=== PATIENT | female | born 1965 | race Caucasian/White ===

== ENCOUNTER 2021-01-25 10:42 | Day surgery (SDC) | payer MEDICARE, OTHER ==
[2021-01-25] MEDS ORDERED: Depo-Medrol 40 MG/ML IM ONE (10:43)
[2021-01-25] MEDS ORDERED: LIDOCAINE HCL 2% 100 MG/5 ML IJ ONE (10:43)
[2021-01-25] MEDS ORDERED: DIPRIVAN 200 MG/20 ML IV ONE (12:03)
--- NOTE | 2021-01-25 12:43 | XRAY ---
Indication: Bilateral L4-S1 MBB. Intraoperative fluoroscopy provided for 8 seconds. Single digital spot image submitted for interpretation demonstrates posterior needle tips projecting over the expected left and right L4-S1 nerve roots. Correlate with intraoperative findings/report.
--- NOTE | 2021-01-25 13:07 | XRAY ---
8 seconds of fluoroscopy was used in surgery for a bilateral L4-L5 and L5-S1 MBB.
[2021-01-25] MEDS ORDERED: Lactated Ringers 1,000 ML IV ONE (15:56)
== END 2021-01-25 12:27 | disposition home or self-care (01) ==
LOC: SDC-PAIN 10:42
PROVIDERS: ATTEND Psychiatry & Neurology Pain Medicine
DX: M47.816 Spondylosis without myelopathy or radiculopathy, lumbar region (principal); M19.90 Unspecified osteoarthritis, unspecified site; I10 Essential (primary) hypertension; F32.9 Major depressive disorder, single episode, unspecified; F41.9 Anxiety disorder, unspecified; E78.5 Hyperlipidemia, unspecified
CPT/HCPCS: 64493; 64494; 72020; 77002; J1030; J2704

== ENCOUNTER 2021-03-22 13:05 | Day surgery (SDC) | payer MEDICARE, OTHER ==
[2021-03-22] MEDS ORDERED: Depo-Medrol 40 MG/ML IM ONE (13:06)
[2021-03-22] MEDS ORDERED: BUPIVACAINE 0.5% VIAL IJ ONE (13:06)
[2021-03-22] MEDS ORDERED: Lactated Ringers 1,000 ML IV ONE (14:57)
[2021-03-22] MEDS ORDERED: DIPRIVAN 200 MG/20 ML IV ONE (15:23)
--- NOTE | 2021-03-22 16:44 | XRAY ---
Indication: Bilateral L4-S1 MBB. Intraoperative fluoroscopy provided for 6 seconds. Single digital spot image submitted for interpretation demonstrates posterior needle tips projecting over the expected left and right L4-S1 nerve roots. Correlate with intraoperative findings/report. Incidental partially visualized right pain pump.
--- NOTE | 2021-03-22 16:52 | XRAY ---
6 seconds of fluoroscopy was used in surgery for a bilateral L4-L5, L5-S1 MBB.
== END 2021-03-22 15:52 | disposition home or self-care (01) ==
LOC: SDC-PAIN 13:05
PROVIDERS: ATTEND Psychiatry & Neurology Pain Medicine
DX: M47.816 Spondylosis without myelopathy or radiculopathy, lumbar region (principal); Z79.899 Other long term (current) drug therapy
CPT/HCPCS: 64493; 64494; 72020; 77002; J1030; J2704

== ENCOUNTER 2021-04-26 13:10 | Day surgery (SDC) | payer MEDICARE, OTHER ==
[2021-04-26] MEDS ORDERED: Xylocaine 1% Vial 30 ML PF IJ ONE (13:11)
[2021-04-26] MEDS ORDERED: Depo-Medrol 40 MG/ML IM ONE (13:11)
[2021-04-26] MEDS ORDERED: BUPIVACAINE 0.5% VIAL IJ ONE (13:11)
[2021-04-26] MEDS ORDERED: DIPRIVAN 200 MG/20 ML IV ONE (16:25)
[2021-04-26] MEDS ORDERED: Ketamine HCl 50 MG/ML ONE (16:30)
[2021-04-26] MEDS ORDERED: Lactated Ringers 1,000 ML IV ONE (16:40)
[2021-04-26] MEDS ORDERED: MORPHINE SULFATE 2 MG INJ ONE ×2 (16:51→17:03)
[2021-04-26] MEDS ORDERED: TORAdol 30 mg Injection ONE (17:09)
--- NOTE | 2021-04-26 17:09 | XRAY ---
Indication: Left L4-S1 RFA. Intraoperative fluoroscopy provided for 20 seconds. 3 digital spot image submitted for interpretation demonstrates posterior needle tips projecting over the expected left L4-S1 nerve roots. Correlate with intraoperative findings/report.
--- NOTE | 2021-04-26 17:53 | XRAY ---
20 seconds of fluoroscopy was used in surgery for a left L4-S1 RFA.
== END 2021-04-26 18:05 | disposition home or self-care (01) ==
LOC: SDC-PAIN 13:10
PROVIDERS: ATTEND Psychiatry & Neurology Pain Medicine
DX: M47.816 Spondylosis without myelopathy or radiculopathy, lumbar region (principal); Z79.899 Other long term (current) drug therapy
CPT/HCPCS: 64635; 64636; 72100; 77002; J1030; J1885; J2001; J2270; J2704

== ENCOUNTER 2021-05-03 10:33 | Day surgery (SDC) | payer MEDICARE, OTHER ==
[2021-05-03] MEDS ORDERED: Xylocaine 1% Vial 30 ML PF IJ ONE (10:34)
[2021-05-03] MEDS ORDERED: Depo-Medrol 40 MG/ML IM ONE (10:34)
[2021-05-03] MEDS ORDERED: BUPIVACAINE 0.5% VIAL IJ ONE (10:34)
[2021-05-03] MEDS ORDERED: Lactated Ringers 1,000 ML IV ONE (10:43)
[2021-05-03] MEDS ORDERED: DIPRIVAN 200 MG/20 ML IV ONE (10:57)
--- NOTE | 2021-05-03 12:22 | XRAY ---
Indication: Right L4-S1 RFA. Intraoperative fluoroscopy provided for 29 seconds. 3 digital spot image submitted for interpretation demonstrates posterior needle tips projecting over the expected right L4-S1 nerve roots. Correlate with intraoperative findings/report. Incidental incompletely visualized right back epidural stimulator device/leads.
--- NOTE | 2021-05-03 13:49 | XRAY ---
29 seconds of fluoroscopy was used in surgery for a right L4-S1 RFA.
== END 2021-05-03 11:45 | disposition home or self-care (01) ==
LOC: SDC-PAIN 10:33
PROVIDERS: ATTEND Psychiatry & Neurology Pain Medicine
DX: M47.816 Spondylosis without myelopathy or radiculopathy, lumbar region (principal); Z79.899 Other long term (current) drug therapy
CPT/HCPCS: 64635; 64636; 72100; 77002; J1030; J2001; J2704

== ENCOUNTER 2022-04-04 12:43 | Day surgery (SDC) | payer MEDICARE, OTHER ==
[2022-04-04] MEDS ORDERED: Depo-Medrol 40 MG/ML IM ONE (12:44)
[2022-04-04] MEDS ORDERED: Marcaine Mpf 0.5% Vial 30 Ml IJ ONE (12:44)
[2022-04-04] MEDS ORDERED: Decadron 4 MG INJ IJ ONE (12:44)
[2022-04-04] MEDS ORDERED: XYLOCAINE-MPF 1% 5ML SDV IJ ONE (12:44)
[2022-04-04] MEDS ORDERED: DIPRIVAN 200 MG/20 ML IV ONE (14:34)
[2022-04-04] MEDS ORDERED: Lactated Ringers 1,000 ML IV ONE (15:08)
--- NOTE | 2022-04-04 16:31 | XRAY ---
Indication: Left hip and left piriformis injections. Intraoperative fluoroscopy provided for 18 seconds. 2 digital spot image obtained prone submitted for interpretation demonstrates posterior needle tip projecting over the expected left piriformis muscle. Second needle tip lateral to left greater trochanter. Small amount of contrast injected for both needle tip placement. Correlate with intraoperative findings/report.
--- NOTE | 2022-04-04 16:45 | XRAY ---
18 seconds of fluoroscopy was used in surgery for a left hip greater trochanteric bursa injection and a left piriformis injection.
== END 2022-04-04 14:54 | disposition home or self-care (01) ==
LOC: SDC-PAIN 12:43
PROVIDERS: ATTEND Psychiatry & Neurology Pain Medicine
DX: M16.12 Unilateral primary osteoarthritis, left hip (principal); M79.18 Myalgia, other site; Z79.899 Other long term (current) drug therapy
CPT/HCPCS: 20552; 20610; 73501; 77002; J1030; J1100; J2704; Q9966

== ENCOUNTER 2022-08-15 14:26 | Day surgery (SDC) | payer MEDICARE, OTHER ==
[2022-08-15] MEDS ORDERED: BUPIVACAINE 0.5% VIAL IJ ONE (14:27)
[2022-08-15] MEDS ORDERED: Decadron 4 MG INJ IV ONE (14:27)
[2022-08-15] MEDS ORDERED: Depo-Medrol 40 MG/ML IM ONE (14:27)
[2022-08-15] MEDS ORDERED: LIDOCAINE HCL 1% 50 MG/5 ML VL PF IJ ONE (14:27)
[2022-08-15] MEDS ORDERED: DIPRIVAN 200 MG/20 ML IV ONE (17:12)
--- NOTE | 2022-08-15 19:35 | XRAY ---
Indication: Left greater trochanter bursa and left piriformis injections. Intraoperative fluoroscopy provided for 31 second. 2 digital spot image obtained prone submitted for interpretation demonstrates needle tip projecting lateral to left greater trochanter. Second posterior needle tip projects over the left piriformis muscle. Small amount of contrast injected for both needle tip placement. Correlate with intraoperative findings/report.
--- NOTE | 2022-08-16 09:18 | XRAY ---
31 seconds of fluoroscopy was used in surgery for a left greater trochanteric bursa and piriformis muscle injection.
== END 2022-08-15 17:50 | disposition home or self-care (01) ==
LOC: SDC-PAIN 14:26
PROVIDERS: ATTEND Psychiatry & Neurology Pain Medicine
DX: M16.12 Unilateral primary osteoarthritis, left hip (principal); M79.18 Myalgia, other site; Z79.899 Other long term (current) drug therapy
CPT/HCPCS: 20552; 20610; 73502; 77002; J1030; J1100; J2001; J2704; Q9966

== ENCOUNTER 2023-03-20 12:54 | Day surgery (SDC) | payer MEDICARE, OTHER ==
[2023-03-20] MEDS ORDERED: Depo-Medrol 40 MG/ML IM ONE (12:55)
[2023-03-20] MEDS ORDERED: LIDOCAINE HCL 1% 50 MG/5 ML VL PF IJ ONE (12:55)
[2023-03-20] MEDS ORDERED: BUPIVACAINE 0.5% VIAL IJ ONE (12:55)
[2023-03-20] MEDS ORDERED: DIPRIVAN 200 MG/20 ML IV ONE (15:02)
[2023-03-20] MEDS ORDERED: Lactated Ringers 1,000 ML IV ONE (15:28)
--- NOTE | 2023-03-20 16:27 | XRAY ---
Indication: Left L4-S1 RFA. Intraoperative fluoroscopy provided for 22 seconds. 4 digital spot images submitted for interpretation demonstrates posterior needle tips projecting over the expected left L4-S1 nerve roots. Correlate with intraoperative findings/report.
--- NOTE | 2023-03-21 08:47 | XRAY ---
22 seconds of fluoroscopy was used in surgery for a left L4-S1 RFA.
== END 2023-03-20 15:35 | disposition home or self-care (01) ==
LOC: SDC-PAIN 12:54
PROVIDERS: ATTEND Psychiatry & Neurology Pain Medicine
DX: M47.816 Spondylosis without myelopathy or radiculopathy, lumbar region (principal)
CPT/HCPCS: 64635; 64636; 72100; 77002; J1030; J2001; J2704

== ENCOUNTER 2023-03-21 13:03 | Day surgery (SDC) | payer MEDICARE, OTHER ==
[2023-03-21] MEDS ORDERED: BUPIVACAINE 0.5% VIAL IJ ONE (13:04)
[2023-03-21] MEDS ORDERED: Depo-Medrol 40 MG/ML IM ONE (13:04)
[2023-03-21] MEDS ORDERED: LIDOCAINE HCL 1% 50 MG/5 ML VL PF IJ ONE (13:04)
[2023-03-21] MEDS ORDERED: DIPRIVAN 200 MG/20 ML IV ONE (15:00)
[2023-03-21] MEDS ORDERED: Lactated Ringers 1,000 ML IV ONE (15:37)
--- NOTE | 2023-03-21 16:42 | XRAY ---
Indication: Right L4-S1 RFA. Intraoperative fluoroscopy provided for 28 seconds. 4 digital spot image submitted for interpretation demonstrates posterior needle tips projecting over the expected L4-S1 nerve roots. Correlate with intraoperative findings/report. Incidental partially visualized right epidural stimulator device/leads.
--- NOTE | 2023-03-21 17:03 | XRAY ---
28 seconds of fluoroscopy was used in surgery for a right L4-S1 RFA.
== END 2023-03-21 15:35 | disposition home or self-care (01) ==
LOC: SDC-PAIN 13:03
PROVIDERS: ATTEND Psychiatry & Neurology Pain Medicine
DX: M47.816 Spondylosis without myelopathy or radiculopathy, lumbar region (principal); Z79.899 Other long term (current) drug therapy
CPT/HCPCS: 64635; 64636; 72100; 77002; J1030; J2001; J2704

== ENCOUNTER 2023-06-05 10:42 | Day surgery (SDC) | payer MEDICARE, OTHER ==
[2023-06-05] MEDS ORDERED: BUPIVACAINE 0.5% VIAL IJ ONE (10:43)
[2023-06-05] MEDS ORDERED: Depo-Medrol 40 MG/ML IM ONE (10:43)
[2023-06-05] MEDS ORDERED: DIPRIVAN 200 MG/20 ML IV ONE (14:13)
[2023-06-05] MEDS ORDERED: Xylocaine-Mpf 2% 5 Ml Vial ONE (14:15)
--- NOTE | 2023-06-05 15:17 | XRAY ---
Indication: Bilateral SI joint and left greater trochanter bursa injection. Intraoperative fluoroscopy provided for 26 seconds. 5 digital spot image obtained prone submitted for interpretation demonstrates posterior needle tip projecting over for the left and right SI joint. Additional needle tip lateral to left greater trochanter with small amount of contrast injected for needle tip placement. Correlate with intraoperative findings/report. Incidental incompletely visualized right epidural stimulator device/leads.
[2023-06-05] MEDS ORDERED: Lactated Ringers 1,000 ML IV ONE (17:03)
--- NOTE | 2023-06-05 17:04 | XRAY ---
26 seconds of fluoroscopy was used in surgery for a bilateral sacroiliac joint and left greater trochanteric bursa injection.
== END 2023-06-05 14:46 | disposition home or self-care (01) ==
LOC: SDC-PAIN 10:42
PROVIDERS: ATTEND Psychiatry & Neurology Pain Medicine
DX: M46.1 Sacroiliitis, not elsewhere classified (principal); M16.12 Unilateral primary osteoarthritis, left hip; Z79.899 Other long term (current) drug therapy
CPT/HCPCS: 20610; 27096; 73502; 77002; G0260; J1030; J2704; Q9966

== ENCOUNTER 2023-09-04 12:19 | Day surgery (SDC) | payer MEDICARE, OTHER ==
[2023-09-04] MEDS ORDERED: BUPIVACAINE 0.5% VIAL IJ ONE (12:20)
[2023-09-04] MEDS ORDERED: Depo-Medrol 40 MG/ML IM ONE (12:20)
[2023-09-04] MEDS ORDERED: DIPRIVAN 200 MG/20 ML IV ONE (14:59)
[2023-09-04] MEDS ORDERED: Lactated Ringers 1,000 ML IV ONE (15:52)
--- NOTE | 2023-09-04 16:50 | XRAY ---
Indication: Left SI joint and left greater trochanter bursa injection. Intraoperative fluoroscopy provided for 15 seconds. 4 digital spot image obtained prone submitted for interpretation demonstrates posterior needle tip projecting over the left SI joint. Second needle tip lateral to left greater trochanter with small amount of contrast injected for needle tip placement. Correlate with intraoperative findings/report.
--- NOTE | 2023-09-04 16:56 | XRAY ---
15 seconds of fluoroscopy was used in surgery for a left sacroiliac joint and left greater trochanteric bursa injection.
== END 2023-09-04 15:24 | disposition home or self-care (01) ==
LOC: SDC-PAIN 12:19
PROVIDERS: ATTEND Psychiatry & Neurology Pain Medicine
DX: M46.1 Sacroiliitis, not elsewhere classified (principal); M16.12 Unilateral primary osteoarthritis, left hip
CPT/HCPCS: 20610; 27096; 73501; 77002; G0260; J1030; J2704; Q9966

== ENCOUNTER 2024-11-04 13:32 | Day surgery (SDC) | payer MEDICARE, OTHER ==
[2024-11-04] MEDS ORDERED: BUPIVACAINE 0.5% VIAL IJ ONE (13:33)
[2024-11-04] MEDS ORDERED: Depo-Medrol 40 MG/ML IM ONE (13:33)
[2024-11-04] MEDS ORDERED: propofoL IV ONE (15:44)
--- NOTE | 2024-11-04 20:24 | XRAY ---
Indication: Left hip and greater trochanter bursa injection. Intraoperative fluoroscopy provided for 22 seconds. 2 digital spot images obtained prone submitted for interpretation demonstrates needle tip projecting lateral to left femur neck. Second needle tip lateral to greater trochanter. Small amount of contrast injected for needle tip placement. Correlate with intraoperative findings/report.
--- NOTE | 2024-11-04 20:27 | XRAY ---
22 seconds of fluoroscopy were used in surgery for a left intra-articular hip injection and a left greater trochanteric bursa injection.
== END 2024-11-04 16:13 | disposition home or self-care (01) ==
LOC: SDC-PAIN 13:32
PROVIDERS: ATTEND Psychiatry & Neurology Pain Medicine
DX: M16.12 Unilateral primary osteoarthritis, left hip (principal)
CPT/HCPCS: 20610; 73502; 77002; J2704; Q9966

== ENCOUNTER 2024-12-17 07:29 | Day surgery (SDC) | payer MEDICARE, OTHER ==
[2024-12-17] MEDS ORDERED: LIDOCAINE HCL 1% AMPUL 5 ML IJ ONE (07:30)
[2024-12-17] MEDS ORDERED: Depo-Medrol 40 MG/ML IM ONE (07:30)
[2024-12-17] MEDS ORDERED: BUPIVACAINE 0.5% VIAL IJ ONE (07:30)
[2024-12-17] MEDS ORDERED: propofoL IV ONE (09:11)
[2024-12-17] MEDS ORDERED: Lactated Ringers 1,000 ML IV ONE (10:00)
--- NOTE | 2024-12-17 10:38 | XRAY ---
Indication: Right L4-S1 RFA. Intraoperative fluoroscopy provided for 21 seconds. 5 digital spot image submitted for interpretation demonstrates posterior needle tips projecting over expected right L4-S1 nerve roots. Correlate with intraoperative findings/report.
--- NOTE | 2024-12-17 10:53 | XRAY ---
21 seconds of fluoroscopy used in surgery for a right L4-S1 RFA.
== END 2024-12-17 09:45 | disposition home or self-care (01) ==
LOC: SDC-PAIN 07:29
PROVIDERS: ATTEND Psychiatry & Neurology Pain Medicine
DX: M47.817 Spondylosis without myelopathy or radiculopathy, lumbosacral region (principal)
CPT/HCPCS: 64635; 64636; 72100; J2704

== ENCOUNTER 2024-12-23 11:28 | Day surgery (SDC) | payer MEDICARE, OTHER ==
[2024-12-23] MEDS ORDERED: Depo-Medrol 40 MG/ML IM ONE (11:29)
[2024-12-23] MEDS ORDERED: BUPIVACAINE 0.5% VIAL IJ ONE (11:29)
[2024-12-23] MEDS ORDERED: Lactated Ringers IV ONE (11:29)
[2024-12-23] MEDS ORDERED: LIDOCAINE HCL 1% AMPUL 5 ML IJ ONE (11:29)
[2024-12-23] MEDS ORDERED: propofoL IV ONE (13:51)
--- NOTE | 2024-12-23 15:02 | XRAY ---
Indication: Left L4-S1 RFA. Intraoperative fluoroscopy provided for 16 seconds. 3 digital spot image submitted for interpretation demonstrates posterior needle tips projecting over expected left L4-S1 nerve roots. Correlate with intraoperative findings/report. Incidental incompletely visualized right epidural generator/lead.
--- NOTE | 2024-12-23 15:05 | XRAY ---
16 seconds of fluoroscopy was used in surgery for a left L4-S1 RFA.
== END 2024-12-23 14:28 | disposition home or self-care (01) ==
LOC: SDC-PAIN 11:28
PROVIDERS: ATTEND Psychiatry & Neurology Pain Medicine
DX: M47.817 Spondylosis without myelopathy or radiculopathy, lumbosacral region (principal)
CPT/HCPCS: 64635; 64636; 72100; J2704

== ENCOUNTER 2025-07-28 11:42 | Day surgery (SDC) | payer MEDICARE, OTHER ==
[2025-07-28] MEDS ORDERED: BUPIVACAINE 0.5% VIAL IJ ONE (11:43)
[2025-07-28] MEDS ORDERED: methylPREDNISolone acetate IM ONE (11:43)
[2025-07-28] MEDS ORDERED: LIDOCAINE HCL 1% 50 MG/5 ML VL IJ ONE (11:43)
[2025-07-28] MEDS ORDERED: propofoL IV ONE (13:52)
[2025-07-28] MEDS ORDERED: Lactated Ringers 1,000 ML IV ONE (15:44)
--- NOTE | 2025-07-28 16:40 | XRAY ---
Indication: Left hip, greater trochanter bursa, and left piriformis injection. Intraoperative fluoroscopy provided for 32 seconds. 3 digital spot image obtained prone submitted for interpretation demonstrates posterior needle tip projecting over left piriformis. Additional needle tips lateral to left femur neck and greater trochanter. Small amount of contrast injected for all needle tip placement. Correlate with intraoperative findings/report.
--- NOTE | 2025-07-28 17:00 | XRAY ---
32 seconds of fluoroscopy was used in surgery for a left intra-articular hip, greater trochanteric bursa, and piriformis injection.
== END 2025-07-28 14:25 | disposition home or self-care (01) ==
LOC: SDC-PAIN 11:42
PROVIDERS: ATTEND Psychiatry & Neurology Pain Medicine
DX: M16.12 Unilateral primary osteoarthritis, left hip (principal); M79.18 Myalgia, other site